=== PATIENT | female | born 1970 | race Caucasian/White ===

== ENCOUNTER 2017-03-16 20:12 | Inpatient (IN) | payer OTHER ==
[2017-03-16] MEDS: NITROGLYCERIN (SL) 0.4 MG TAB SL (22:23)
[2017-03-17] MEDS ORDERED: DEXTROSE 50% 50 ML SYRINGE IV ×2 (01:00)
[2017-03-17] MEDS ORDERED: GLUCOSE GEL 15 GRAM TUBE BUCCAL (01:00)
[2017-03-17] MEDS ORDERED: GLUCAGON 1 MG INJ IM (01:00)
[2017-03-17] MEDS ORDERED: GLUCOSE GEL 15 GRAM TUBE PO ×2 (01:00)
[2017-03-17] MEDS ORDERED: morphine 2 MG INJ IV (02:00)
[2017-03-17] MEDS ORDERED: HYDROCODONE/APAP (5/325) TAB PO (02:00)
[2017-03-17] MEDS ORDERED: NITROGLYCERIN (SL) 0.4 MG TAB SL (02:00)
[2017-03-17] MEDS ORDERED: NACL 0.9% 3 ML SYG IV (02:00)
[2017-03-17] MEDS ORDERED: ONDANSETRON 4 MG INJ IV (02:00)
[2017-03-17] MEDS ORDERED: ALBUTEROL/IPRATROPIUM (NEB) 3 ML AMP HHN (02:00)
[2017-03-17] MEDS ORDERED: ACCU-CHEK XX (02:00)
[2017-03-17] MEDS ORDERED: ACETAMINOPHEN 325 MG TAB PO (02:00)
[2017-03-17] MEDS: ACCU-CHEK XX (02:14)
[2017-03-17 02:39] LABS: CREATINE KINASE 45 IU/L (23-200)
[2017-03-17 02:52] LABS: CK INDEX 0.6; CK-MB 0.29 ng/ml (0.0-2.4)
[2017-03-17 02:54] LABS: TROPONIN-I < 0.012 ng/ml (0.00-0.12)
[2017-03-17 07:30] LABS: ADD MAN DIFF? NO
[2017-03-17 07:35] LABS: BASOPHILS % 0.9 % (0.0-2.0); EOSINOPHILS # 0.1 10^3/ul (0.0-0.5); EOSINOPHILS % 2.8 % (0.0-7.0); HEMATOCRIT 38.5 % (37.0-47.0); HEMOGLOBIN 12.3 g/dl (12.0-16.0); LYMPHOCYTES # 0.9 10^3/ul (0.8-2.9); MEAN CORPUSCULAR HEMOGLOBIN 27.8 pg (29.0-33.0); MEAN CORPUSCULAR HGB CONC 31.9 g/dl (32.0-37.0); MEAN CORPUSCULAR VOLUME 86.9 fl (82.0-101.0); MEAN PLATELET VOLUME 11.1 fl (7.4-10.4); MONOCYTE # 0.4 10^3/ul (0.3-0.9); MONOCYTES % 8.7 % (0.0-11.0); NEUTROPHIL # 3.1 10^3/ul (1.6-7.5); NEUTROPHILS % 67.7 % (39.0-77.0); PLATELET COUNT 214 10^3/UL (140-415); RED BLOOD COUNT 4.43 10^6/ul (4.20-5.40); RED CELL DISTRIBUTION WIDTH 18.4 % (11.5-14.5)
[2017-03-17 07:35] LABS: WHITE BLOOD COUNT 4.6 10^3/ul (4.8-10.8)
[2017-03-17 08:13] LABS: CREATINE KINASE 44 IU/L (23-200)
[2017-03-17 08:16] LABS: ALANINE AMINOTRANSFERASE 58 IU/L (13-69); ALBUMIN 3.4 g/dl (3.3-4.9); ALBUMIN/GLOBULIN RATIO 1.25; ALKALINE PHOSPHATASE 93 IU/L (42-121); ANION GAP 14 (8-16); ASPARTATE AMINO TRANSFERASE 73 IU/L (15-46); BILIRUBIN,INDIRECT 0.2 mg/dl (0-1.1); BILIRUBIN,TOTAL 0.2 mg/dl (0.2-1.3); BLOOD UREA NITROGEN 10 mg/dl (7-20); CARBON DIOXIDE 29 mmol/L (21-31); CHLORIDE 104 mmol/L (97-110); CHOL/HDL RATIO 3.1 RATIO; CHOLESTEROL 130 mg/dl (100-200); CREATININE 0.54 mg/dl (0.44-1.00); GLUCOSE 216 mg/dl (70-220); HDL CHOLESTEROL 41 mg/dl (34-88); LDL CHOLESTEROL,CALCULATED 68 mg/dl; POTASSIUM 4.8 mmol/L (3.5-5.1); SODIUM 142 mmol/L (135-144); TOTAL PROTEIN 6.1 g/dl (6.1-8.1); TRIGLYCERIDES 103 mg/dl (0-149)
[2017-03-17 08:25] LABS: CK INDEX 0.6; CK-MB 0.26 ng/ml (0.0-2.4)
[2017-03-17 08:26] LABS: HEMOGLOBIN A1C 8.7 % (0-5.9)
[2017-03-17 08:28] LABS: TROPONIN-I < 0.012 ng/ml (0.00-0.12)
[2017-03-17] MEDS: INSULIN ASPART [NOVOLOG] 3 ML PEN SC ×2 (08:30→12:07)
[2017-03-17] MEDS: INSULIN GLARGINE [LANtus] 3 ML PEN SC (08:30)
[2017-03-17] MEDS ORDERED: TAMOXIFEN 10 MG TAB PO ×2 (09:00→21:00)
[2017-03-17] MEDS: HEPARIN 5,000 UNIT/0.5 ML VIAL SC (09:07)
[2017-03-17] MEDS: ASPIRIN (EC) 81 MG TAB PO (09:10)
[2017-03-17] MEDS: LISINOPRIL 5 MG TAB PO (09:11)
== END 2017-03-17 15:20 | disposition home or self-care (01) | DRG 313 ==
LOC: TEL 20:12
PROVIDERS: Internal Medicine
DX: R07.9 Chest pain, unspecified (principal); C50.912 Malignant neoplasm of unspecified site of left female breast; I10 Essential (primary) hypertension; E11.9 Type 2 diabetes mellitus without complications; E78.5 Hyperlipidemia, unspecified; Z79.4 Long term (current) use of insulin; Z79.810 Long term (current) use of selective estrogen receptor modulators (SERMs)
CPT/HCPCS: 80053; 80061; 82550; 82553; 82962; 83036; 84443; 84484; 85025; 93005; 93306

== ENCOUNTER → 2017-04-04 | Outpatient (CLI) | payer OTHER | END | disposition home or self-care (01) | LOC: DIB 09:34 | DX: C50.919 Malignant neoplasm of unspecified site of unspecified female breast (principal); E11.9 Type 2 diabetes mellitus without complications; Z79.84 Long term (current) use of oral hypoglycemic drugs ==

== ENCOUNTER 2018-05-10 07:35 | Observation (INO) | payer OTHER ==
[~2018-05-10 07:35] MED LIST: CEFAZOLIN 2 GM/50 ML (PMX) 50 ML IVPB; SOD CHLORIDE 0.9% 1,000 ML IV
[2018-05-10] MEDS ORDERED: DESFLURANE 15 MIN (11:40)
[2018-05-10] MEDS ORDERED: CEFAZOLIN 1 GM INJ ×2 (11:47→13:43)
[2018-05-10] MEDS ORDERED: ROCURONIUM 50 MG INJ (11:47)
[2018-05-10] MEDS ORDERED: LIDOCAINE 2% (SDV) 5 ML INJ (11:47)
[2018-05-10] MEDS ORDERED: PROPOFOL 20 ML (11:47)
[2018-05-10] MEDS ORDERED: MIDAZOLAM 1 MG/ML 2 ML INJ (11:47)
[2018-05-10] MEDS ORDERED: FENTAnyl 50 MCG/ML VIAL ×2 (11:48→13:46)
[2018-05-10] MEDS ORDERED: SUCCINYLCHOLINE CHLORIDE 100 MG/5 ML SYG IV (11:49)
[2018-05-10] MEDS ORDERED: OXYCODONE/ACETAMINOPHEN (5/325) TAB PO ×2 (12:00)
[2018-05-10] MEDS ORDERED: HYDROmorphONE 1 MG/5 ML IV SYRINGE IV ×2 (12:00)
[2018-05-10] MEDS ORDERED: ONDANSETRON 4 MG INJ IV ×2 (12:00→15:00)
[2018-05-10] MEDS ORDERED: MIDAZOLAM 1 MG/ML 2 ML INJ IV (12:00)
[2018-05-10] MEDS ORDERED: LABETALOL HCL 20MG INJ IV (12:00)
[2018-05-10] MEDS ORDERED: ROPIVACAINE 0.5 % 30 ML VIAL (13:24)
[2018-05-10] MEDS ORDERED: FAMOTIDINE 20 MG INJ (13:51)
[2018-05-10] MEDS ORDERED: ONDANSETRON 4 MG INJ (13:51)
[2018-05-10] MEDS ORDERED: SUGAMMADEX SODIUM 200 MG/2 ML VIAL IV (14:44)
[2018-05-10] MEDS ORDERED: D5W-0.45 NACL + KCL 20 MEQ 1,000 ML IV (14:56)
[2018-05-10] MEDS ORDERED: ACETAMINOPHEN 1000MG/100ML IV 100 ML IVPB (15:00)
[2018-05-10] MEDS: HYDROmorphONE 1 MG/5 ML IV SYRINGE IV (16:24)
[2018-05-10] MEDS: MEPERIDINE 25 MG INJ IV (16:25)
[2018-05-10] MEDS ORDERED: GLUCAGON 1 MG INJ IM (17:30)
[2018-05-10] MEDS ORDERED: GLUCOSE GEL 15 GRAM TUBE PO ×2 (17:30)
[2018-05-10] MEDS ORDERED: DEXTROSE 50% 50 ML SYRINGE IV ×2 (17:30)
[2018-05-10] MEDS ORDERED: GLUCOSE GEL 15 GRAM TUBE BUCCAL (17:30)
[2018-05-10] MEDS: INSULIN ASPART [NOVOLOG] 3 ML PEN SC ×2 (17:57→21:01)
[2018-05-10] MEDS: 1/2 NS + KCL 20 MEQ 1,000 ML IV (17:57)
[2018-05-11 06:02] LABS: ADD MAN DIFF? NO
[2018-05-11 06:05] LABS: WHITE BLOOD COUNT 12.1 10^3/ul (4.8-10.8)
[2018-05-11 06:05] LABS: BASOPHILS % 0.2 % (0.0-2.0); EOSINOPHILS # 0.1 10^3/ul (0.0-0.5); EOSINOPHILS % 0.4 % (0.0-7.0); HEMATOCRIT 38.9 % (37.0-47.0); HEMOGLOBIN 12.8 g/dl (12.0-16.0); LYMPHOCYTES # 1.8 10^3/ul (0.8-2.9); LYMPHOCYTES % 14.7 % (15.0-51.0); MEAN CORPUSCULAR HEMOGLOBIN 30.1 pg (29.0-33.0); MEAN CORPUSCULAR HGB CONC 32.9 g/dl (32.0-37.0); MEAN CORPUSCULAR VOLUME 91.5 fl (82.0-101.0); MEAN PLATELET VOLUME 10.1 fl (7.4-10.4); MONOCYTE # 0.7 10^3/ul (0.3-0.9); NEUTROPHIL # 9.4 10^3/ul (1.6-7.5); NEUTROPHILS % 78.1 % (39.0-77.0); PLATELET COUNT 249 10^3/UL (140-415); RED BLOOD COUNT 4.25 10^6/ul (4.20-5.40); RED CELL DISTRIBUTION WIDTH 13.1 % (11.5-14.5)
[2018-05-11 06:33] LABS: ALANINE AMINOTRANSFERASE 31 IU/L (13-69); ALBUMIN 3.5 g/dl (3.3-4.9); ALBUMIN/GLOBULIN RATIO 1.09; ALKALINE PHOSPHATASE 77 IU/L (42-121); ANION GAP 8 (5-13); ASPARTATE AMINO TRANSFERASE 42 IU/L (15-46); BILIRUBIN,INDIRECT 0.3 mg/dl (0-1.1); BILIRUBIN,TOTAL 0.3 mg/dl (0.2-1.3); BLOOD UREA NITROGEN 11 mg/dl (7-20); CARBON DIOXIDE 28 mmol/L (21-31); CHLORIDE 104 mmol/L (97-110); CREATININE 0.47 mg/dl (0.44-1.00); Estimated GFR > 60 mL/min (>60); GLUCOSE 138 mg/dl (70-220); POTASSIUM 4.7 mmol/L (3.5-5.1); SODIUM 140 mmol/L (135-144); TOTAL PROTEIN 6.7 g/dl (6.1-8.1)
[2018-05-11] MEDS: INSULIN ASPART [NOVOLOG] 3 ML PEN SC ×3 (08:00→17:19)
[2018-05-11] MEDS: morphine 2 MG INJ IV (08:02)
[2018-05-11] MEDS: 1/2 NS + KCL 20 MEQ 1,000 ML IV ×2 (08:05→15:33)
[2018-05-11] MEDS ORDERED: NON-FORMULARY/PATIENT OWN MED (Tamoxifen Citrate* 20 MG) PO (09:00)
[2018-05-11] MEDS: TAMOXIFEN 10 MG TAB PO (10:18)
[2018-05-11] MEDS: HYDROCODONE/APAP (5/325) TAB PO (15:12)
== END 2018-05-11 19:16 | disposition home or self-care (01) ==
LOC: SDS 07:35 → REC 14:58 → PP2 16:50
PROVIDERS: Surgery Surgical Oncology
DX: K80.10 Calculus of gallbladder with chronic cholecystitis without obstruction (principal); E11.9 Type 2 diabetes mellitus without complications; I10 Essential (primary) hypertension; Z85.3 Personal history of malignant neoplasm of breast
CPT/HCPCS: 47562; 80053; 82962; 85025; 88304